=== PATIENT | male | born 1985 | race Caucasian/White ===

== ENCOUNTER 2017-07-17 01:45 | Emergency (ER) | payer MEDICAID ==
[~2017-07-17] VITALS: Ht 172.7 cm; Wt 86.2 kg
[2017-07-17 01:53] VITALS: BP 148/95; PULSE 105; RESP 21; TEMP 98.2; O2SAT 97
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
--- NOTE | 2017-07-17 02:03 | NUR ---
Patient to ER bed 02 to gown for evaluation. Side rails up. Report given to KOLE Guardado.
--- NOTE | 2017-07-17 02:04 | NUR ---
ER at bedside examining patient.
--- NOTE | 2017-07-17 02:30 | NUR ---
Shoulder sling placed to patient's left shoulder per MD verbal order.
--- NOTE | 2017-07-17 02:50 | NUR ---
Patient refused IV insertion, notified.
[2017-07-17 03:18] LABS: BILIRUBIN,URINE NEGATIVE (NEGATIVE); BLOOD, URINE TRACE (NEGATIVE); CLARITY/URINE CLEAR (CLEAR); COLOR,URINE YELLOW (YELLOW); GLUCOSE,URINE NEGATIVE (NEGATIVE); KETONES,URINE TRACE (NEGATIVE); LEUKOCYTE ESTERASE ,URINE NEGATIVE (NEGATIVE); NITRITE, URINE NEGATIVE (NEGATIVE); PROTEIN URINE 1+ (NEGATIVE); UROBILINOGEN,URINE 0.2 (0.2-1.0)
[2017-07-17 03:23] LABS: BACTERIA,URINE MODERATE /HPF (None Seen)
[2017-07-17 03:24] LABS: HYALINE CASTS, URINE 0-10 /LPF (None Seen); MUCUS,URINE 1+ /LPF (None Seen)
[2017-07-17 03:32] LABS: BARBITURATE, URINE NEGATIVE (NEG <=200); BENZODIAZEPINE, URINE NEGATIVE (NEG <=150); CANNABINOID, URINE NEGATIVE (NEG <=50); COCAINE, URINE NEGATIVE (NEG <=150); METHAMPHETAMINES SCREEN,URINE NEGATIVE (NEG <=500); OPIATE, URINE NEGATIVE (NEG <=100); PHENCYCLIDINE SCREEN,URINE NEGATIVE (NEG <=25); UR TRICYCLIC ANTIDEPRESSANTS NEGATIVE (NEG <=300); URINE AMPHETAMINE NEGATIVE (NEG <=500); URINE METHADONE NEGATIVE (NEG <=200); URINE OXYCODONE SCREEN NEGATIVE (NEG <=100); URINE PROPOXYPHENE SCREEN NEGATIVE (NEG <=300)
[2017-07-17 03:33] LABS: HEMATOCRIT 48.5 % (36-54); HEMOGLOBIN 16.3 g/dL (14.0-18.0); MEAN CORPUSCULAR HEMOGLOBIN 29 pg (27-31); MEAN CORPUSCULAR HGB CONC 34 % (32-36); MEAN CORPUSCULAR VOLUME 85 fL (79.0-98.0); PLATELET COUNT (AUTO) 316 K/uL (130-430); RED BLOOD CELL COUNT(AUTO) 5.72 MIL/uL (4.2-6.2); RED CELL DISTRIBUTION WIDTH 12.9 % (9.0-15.0); WHITE BLOOD COUNT (AUTO) 22.1 K/uL (4.8-10.8)
[2017-07-17 03:34] LABS: ANION GAP 10 (5-15); CALCIUM 9.3 mg/dL (8.4-11.0); CHLORIDE 102 mmol/L (98-107); CREATININE 0.93 mg/dL (0.55-1.30); GLUCOSE 140 mg/dL (70-99); POTASSIUM 3.3 mmol/L (3.5-5.1); SODIUM SERUM 135 mmol/L (136-145); UREA NITROGEN, BLOOD 9 mg/dL (8-21)
[2017-07-17 03:35] LABS: GFR AFRICAN AMERICAN 122 mL/min (>90)
[2017-07-17 03:37] LABS: PROTHROMBIN TIME 10.4 SECS (9.5-12.5)
[2017-07-17 03:39] LABS: ALANINE AMINOTRANSFERASE 63 U/L (12-78); ALBUMIN 4.3 g/dL (3.4-4.8); ALCOHOL, BLOOD 6 mg/dL (<10); ASPARTATE AMINOTRANSFERASE 28 U/L (10-37); TOTAL BILIRUBIN 0.3 mg/dL (0.0-1.0)
[2017-07-17 03:40] LABS: ACETAMINOPHEN < 1 ug/mL (1-30)
[2017-07-17 04:01] LABS: ATYPICAL LYMPHOCYTES % 0 % (0-0); BAND % (MANUAL) 1 % (0-6); BASOPHILS % (MANUAL) 0 % (0-2); EOSINOPHILS % (MANUAL) 0 % (0-7); LYMPHOCYTES % (MANUAL) 4 % (20-46); MONOCYTES % (MANUAL) 2 % (0-11)
--- NOTE | 2017-07-17 04:03 | NUR ---
Patient stable, no signs of distress noted. Vital signs within therapeutic range.
[2017-07-17] MEDS ORDERED: cefTRIAXone 2 GM VIAL IM ONE (04:15)
[2017-07-17] MEDS ORDERED: cefTRIAXone 1 GM VIAL ONE (04:27)
[2017-07-17] MEDS ORDERED: LIDOCAINE 2%, 20 ML MDV INJ ONE (04:30)
[2017-07-17 04:50] VITALS: BP 138/73; PULSE 84; RESP 14; TEMP 98.3; O2SAT 99
--- NOTE | 2017-07-17 04:50 | NUR ---
Patient given written and verbal discharge instructions and verbalizes understanding. ER MD discussed with patient the results and treatment provided. Patient in stable condition. ID arm band removed. Rx of Motrin given. Patient educated on pain management and to follow up with PMD. Pain Scale 3/10, tolerable for patient. Opportunity for questions provided and answered.
== END 2017-07-17 04:56 | disposition home or self-care (01) ==
LOC: SED 01:45
DX: S43.102A Unspecified dislocation of left acromioclavicular joint, initial encounter (principal); S70.212A Abrasion, left hip, initial encounter; F10.129 Alcohol abuse with intoxication, unspecified; V87.8XXA Person injured in other specified noncollision transport accidents involving motor vehicle (traffic), initial encounter; Y93.55 Activity, bike riding; Y92.488 Other paved roadways as the place of occurrence of the external cause; Y99.8 Other external cause status
CPT/HCPCS: 36415; 71010; 73030; 80053; 80307; 81000; 82550; 84484; 85007; 85027; 85610; 85730; 87086; 96372; 99285; G0480; G0481; G0482; J0696; J2001